=== PATIENT | male | born 1965 | race African-American/Black ===

== ENCOUNTER 2017-05-31 14:31 | Emergency (ER) | payer SELFPAY ==
[~2017-05-31] VITALS: Ht 162.6 cm; Wt 61.2 kg
[2017-05-31] MEDS ORDERED: CYCLOBENZAPRINE 10 MG TABLET. PO ONE (15:00)
[2017-05-31] MEDS ORDERED: HYDROcodone/APAP 5/325MG 1 TAB TABLET PO ONE (15:00)
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
[2017-05-31 15:43] VITALS: BP 123/93
--- NOTE | 2017-05-31 15:51 | RAD ---
Indication pain. AP oblique and lateral views of the left knee were obtained. No acute or significant bony finding is seen. Vascular calcification is noted
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
[2017-05-31] MEDS ORDERED: CYCL10TA2 PO (16:12)
== END 2017-05-31 16:23 | disposition home or self-care (01) ==
LOC: ER 14:31
DX: S16.1XXA Strain of muscle, fascia and tendon at neck level, initial encounter (principal); S29.012A Strain of muscle and tendon of back wall of thorax, initial encounter; S80.02XA Contusion of left knee, initial encounter; S00.83XA Contusion of other part of head, initial encounter; V43.62XA Car passenger injured in collision with other type car in traffic accident, initial encounter; Y93.89 Activity, other specified; Y92.410 Unspecified street and highway as the place of occurrence of the external cause; Y99.8 Other external cause status
CPT/HCPCS: 70450; 72125; 72128; 73564; 99284-25

== ENCOUNTER 2021-12-15 12:35 | Emergency (ER) | payer SELFPAY ==
[~2021-12-15] VITALS: Ht 162.6 cm; Wt 50.7 kg
[~2021-12-15 12:35] MED LIST: CYCL10TA19 PO
[2021-12-15] MEDS ORDERED: FAMOTIDINE 20 MG/2 ML VIAL IVP ONE (13:30)
[2021-12-15] MEDS ORDERED: IV NORMAL SALINE 1000ML BAG 1,000 ML IV ONE (13:30)
[2021-12-15] MEDS ORDERED: ONDANSETRON PF 4 MG/2 ML VIAL. IVP ONE (13:30)
[2021-12-15 13:43] LABS: BASO % 0 % (0-3); EOS % 0 % (0-3); HEMATOCRIT 50.5 % (39.0-53.0); HEMOGLOBIN 17.1 g/dL (13.0-17.5); LYMPH # 0.6 x10^3/uL (1.0-4.8); LYMPH % 9 % (24-48); MEAN CORPUSCULAR HEMOGLOBIN 32 pg (25-35); MEAN CORPUSCULAR HGB CONC 34 g/dL (31-37); MEAN CORPUSCULAR VOLUME 93 fL (79-100); MONO # 0.6 x10^3/uL (0.0-1.1); MONO % 10 % (0-9); NEUT # 5.3 x10^3/uL (1.8-7.7); NEUT % 81 % (31-73); PLATELET COUNT 195 x10^3/uL (140-400); RED BLOOD COUNT 5.42 x10^6/uL (4.30-5.70); RED CELL DISTRIBUTION WIDTH 13.7 % (11.5-14.5); WHITE BLOOD COUNT 6.6 x10^3/uL (4.0-11.0)
[2021-12-15 13:57] LABS: CALCIUM 9.2 mg/dL (8.5-10.1); CREATININE 1.3 mg/dL (0.7-1.3); GFR 69.6
[2021-12-15 13:59] LABS: ALBUMIN 3.6 g/dL (3.4-5.0); ALBUMIN/GLOBULIN RATIO 0.8 (1.0-1.7); TOTAL BILIRUBIN 0.3 mg/dL (0.2-1.0); TOTAL PROTEIN 8.4 g/dL (6.4-8.2)
[2021-12-15 14:10] LABS: INFLUENZA A PATIENT NEGATIVE (NEGATIVE); INFLUENZA B PATIENT NEGATIVE (NEGATIVE)
[2021-12-15 14:13] LABS: CLARITY,URINE HAZY
[2021-12-15 14:14] LABS: BILIRUBIN,URINE MODERATE (NEG); COLOR,URINE YELLOW
[2021-12-15 14:15] LABS: NITRITE,URINE NEGATIVE (NEG); PH,URINE 5.5; PROTEIN,URINE 100 mg/dL (NEG-TRACE); UROBILINOGEN,URINE 0.2 mg/dL (0.2 mg/dL)
[2021-12-15 14:16] LABS: HYALINE CASTS, URINE MANY /HPF
[2021-12-15 14:17] LABS: BACTERIA,URINE FEW /HPF (0-FEW); RBC,URINE OCC /HPF (0-2)
[2021-12-15] MEDS ORDERED: ONDA4TAB12 PO (14:51)
--- NOTE | 2021-12-15 14:52 | PHYS DOC ---
Past Medical History Past Medical History: No Pertinent History Past Surgical History: No Surgical History Smoking Status: Current Every Day Smoker Additional Information: 1 PPD Alcohol Use: Occasionally Additional Information: 2 TO 3 BEERS Drug Use: Marijuana General Adult EDM: Chief Complaint: GI PROBLEM HPI: HPI: Patient is a 56 year old male who presents to the ED today complaining of body aches, chills, vomiting, symptoms intermittently since Monday. Patient denies any abdominal pain, fever, coughing or congestion. Reports being unvaccinated against COVID-19 Review of Systems: Review of Systems: Constitutional: Reports body aches, chills Eyes: Denies change in visual acuity. [] HENT: Denies nasal congestion or sore throat. [] Respiratory: Denies cough or shortness of breath. [] Cardiovascular: Denies chest pain or edema. [] GI: Reports vomiting. Denies abdominal pain, bloody stools or diarrhea. [] : Denies dysuria. [] Musculoskeletal: Denies back pain or joint pain. [] Integument: Denies rash. [] Neurologic: Denies headache, focal weakness or sensory changes. [] Psychiatric: Denies depression or anxiety. [] Heart Score: C/O Chest Pain: N/A Risk Factors: Risk Factors: DM, Current or recent (<one month) smoker, HTN, HLP, family history of CAD, obesity. Risk Scores: Score 0 - 3: 2.5% MACE over next 6 weeks - Discharge Home Score 4 - 6: 20.3% MACE over next 6 weeks - Admit for Clinical Observation Score 7 - 10: 72.7% MACE over next 6 weeks - Early Invasive Strategies Current Medications: Current Medications Medications (Trade) Dose Ordered Sig/Noah Start Time Stop Time Status Last Admin Dose Admin Famotidine (Pepcid Vial) 20 mg 1X ONCE 12/15/21 13:30 12/15/21 13:31 DC 12/15/21 13:42 20 MG Ondansetron HCl (Zofran) 4 mg 1X ONCE 12/15/21 13:30 12/15/21 13:31 DC 12/15/21 13:42 4 MG Sodium Chloride 1,000 ml @ 1,000 mls/hr 1X ONCE 12/15/21 13:30 12/15/21 14:29 DC 12/15/21 13:42 1,000 MLS/HR Allergies: Allergies: Allergies Coded Allergies Type Severity Reaction Last Updated Verified No Known Drug Allergies 05/31/17 No Physical Exam: PE: Constitutional: Well developed, well nourished, no acute distress, non-toxic appearance. [] HENT: Normocephalic, atraumatic, bilateral external ears normal, oropharynx moist, no oral exudates, nose normal. [] Eyes: PERRLA, EOMI, conjunctiva normal, no discharge. [] Neck: Normal range of motion, no tenderness, supple, no stridor. [] Cardiovascular:Heart rate regular rhythm, no murmur [] Lungs & Thorax: Bilateral breath sounds clear to auscultation [] Abdomen: Bowel sounds normal, soft, no tenderness, no masses, no pulsatile masses. [] Skin: Warm, dry, no erythema, no rash. [] Back: No tenderness, no CVA tenderness. [] Extremities: No tenderness, no cyanosis, no clubbing, ROM intact, no edema. [] Neurologic: Alert and oriented X 3, normal motor function, normal sensory function, no focal deficits noted. [] Psychologic: Affect normal, judgement normal, mood normal. [] Current Patient Data: Labs: Laboratory Tests Test 12/15/21 13:20 12/15/21 13:36 12/15/21 13:48 Urine Collection Type Void Urine Color Yellow Urine Clarity Hazy Urine pH 5.5 Urine Specific Parkin 1.025 Urine Protein 100 mg/dL (NEG-TRACE) Urine Glucose (UA) Negative mg/dL (NEG) Urine Ketones (Stick) Negative mg/dL (NEG) Urine Blood Trace (NEG) Urine Nitrite Negative (NEG) Urine Bilirubin Moderate (NEG) Urine Urobilinogen Dipstick 0.2 mg/dL (0.2 mg/dL) Urine Leukocyte Esterase Negative (NEG) Urine RBC Occ /HPF (0-2) Urine WBC 1-4 /HPF (0-4) Urine Bacteria Few /HPF (0-FEW) Urine Hyaline Casts Many /HPF Urine Mucus Marked /LPF White Blood Count 6.6 x10^3/uL (4.0-11.0) Red Blood Count 5.42 x10^6/uL (4.30-5.70) Hemoglobin 17.1 g/dL (13.0-17.5) Hematocrit 50.5 % (39.0-53.0) Mean Corpuscular Volume 93 fL (79-100) Mean Corpuscular Hemoglobin 32 pg (25-35) Mean Corpuscular Hemoglobin Concent 34 g/dL (31-37) Red Cell Distribution Width 13.7 % (11.5-14.5) Platelet Count 195 x10^3/uL (140-400) Neutrophils (%) (Auto) 81 % (31-73) H Lymphocytes (%) (Auto) 9 % (24-48) L Monocytes (%) (Auto) 10 % (0-9) H Eosinophils (%) (Auto) 0 % (0-3) Basophils (%) (Auto) 0 % (0-3) Neutrophils # (Auto) 5.3 x10^3/uL (1.8-7.7) Lymphocytes # (Auto) 0.6 x10^3/uL (1.0-4.8) L Monocytes # (Auto) 0.6 x10^3/uL (0.0-1.1) Eosinophils # (Auto) 0.0 x10^3/uL (0.0-0.7) Basophils # (Auto) 0.0 x10^3/uL (0.0-0.2) Sodium Level 130 mmol/L (136-145) L Potassium Level 4.0 mmol/L (3.5-5.1) Chloride Level 94 mmol/L (98-107) L Carbon Dioxide Level 23 mmol/L (21-32) Anion Gap 13 (6-14) Blood Urea Nitrogen 23 mg/dL (8-26) Creatinine 1.3 mg/dL (0.7-1.3) Estimated GFR (Cockcroft-Gault) 69.6 BUN/Creatinine Ratio 18 (6-20) Glucose Level 109 mg/dL (70-99) H Calcium Level 9.2 mg/dL (8.5-10.1) Total Bilirubin 0.3 mg/dL (0.2-1.0) Aspartate Amino Transferase (AST) 50 U/L (15-37) H Alanine Aminotransferase (ALT) 24 U/L (16-63) Alkaline Phosphatase 62 U/L (46-116) Total Protein 8.4 g/dL (6.4-8.2) H Albumin 3.6 g/dL (3.4-5.0) Albumin/Globulin Ratio 0.8 (1.0-1.7) L Lipase 153 U/L (73-393) Influenza Type A Antigen Negative (NEGATIVE) Influenza Type B Antigen Negative (NEGATIVE) SARS-CoV-2 Antigen (Rapid) Positive (NEGATIVE) *A Laboratory Tests 12/15/21 13:36 Laboratory Tests 12/15/21 13:36 Vital Signs: Vital Signs Date Time Temp Pulse Resp B/P (MAP) Pulse Ox O2 Delivery O2 Flow Rate FiO2 12/15/21 13:36 78 22 120/83 (95) 95 Room Air 12/15/21 12:45 98.5 98.5 EKG: EKG: [] Radiology/Procedures: Radiology/Procedures: [] Course & Med Decision Making: Course & Med Decision Making Pertinent Labs and Imaging studies reviewed. (See chart for details) This a 56-year-old male patient presented to the ED today with body aches, chills, vomiting, symptoms intermittently since Monday. Patient is afebrile in the ED. He was tacky in the low 100s CBC CMP with nothing significantly acute. UA negative for infection. Positive for COVID19. Negative for influenza AMB. Was given IV fluids and Zofran in the ED. Feeling better. Discharged to home. Supportive care measures recommended, return precautions provided Rojas Disclaimer: Rojas Disclaimer: This electronic medical record was generated, in whole or in part, using a voice recognition dictation system. Departure Departure Impression: Primary Impression: Lab test positive for detection of COVID-19 virus Disposition: HOME / SELF CARE / HOMELESS Condition: STABLE Referrals: NO PCP (PCP) follow up with your doctor in one week Patient Instructions: Viral Infections, [id number] Additional Instructions: You are positive for COVID-19. This is a viral illness. Typically it rans its own course. Please take Tylenol or Motrin as needed for fever or body aches. Take Zofran for nausea or vomiting. Push fluids, rest, maintain good hand hygiene. Follow-up with your doctor in a week Scripts Ondansetron (ONDANSETRON ODT) 4 Mg Tab.rapdis 1 TAB PO PRN Q6-8HRS, #16 TAB Prov: LUIS TAYLOR SPRAY STAINER 12/15/21 LUIS TAYLOR SPRAY STAINER December 15, 2021 14:52
[2021-12-15 15:06] VITALS: BP 122/81
== END 2021-12-15 15:12 | disposition home or self-care (01) ==
LOC: ER 12:35
DX: U07.1 COVID-19 (principal); F17.200 Nicotine dependence, unspecified, uncomplicated
CPT/HCPCS: 36415; 80053; 81001; 83690; 85025; 87428; 96361; 96374; 96375; 99285; J2405; J3490; J7030